=== PATIENT | male | born 1990 | race Caucasian/White ===

== ENCOUNTER 2019-01-05 17:44 | Emergency (ER) | payer OTHER, MEDICAID ==
[~2019-01-05] VITALS: Ht 165.1 cm; Wt 104.5 kg
[2019-01-05] MEDS ORDERED: LIDOcaine 1% w/EPI 1:200,000 injection 10mL vial IM ONE (21:15)
[2019-01-05] MEDS ORDERED: LIDOcaine 1% W/epiNEPHrine 1:100,000 20ml vial SQ ONE (21:25)
[2019-01-05] MEDS ORDERED: ORPH100T2 PO (21:53)
[2019-01-05] MEDS ORDERED: HYDR-4353 PO (21:53)
[2019-01-05] MEDS ORDERED: IBUP-1986 PO (21:53)
[2019-01-05 22:07] VITALS: BP 122/67
== END 2019-01-05 22:09 | disposition home or self-care (01) ==
LOC: ER 17:44
DX: S91.312A Laceration without foreign body, left foot, initial encounter (principal); S13.4XXA Sprain of ligaments of cervical spine, initial encounter; F17.200 Nicotine dependence, unspecified, uncomplicated; V49.88XA Car occupant (driver) (passenger) injured in other specified transport accidents, initial encounter; Y93.89 Activity, other specified; Y92.413 State road as the place of occurrence of the external cause; Y99.9 Unspecified external cause status
CPT/HCPCS: 12001; 99283

== ENCOUNTER 2019-01-16 08:26 | Emergency (ER) | payer MEDICAID, OTHER ==
[~2019-01-16] VITALS: Ht 165.1 cm; Wt 101.5 kg
[~2019-01-16 08:26] MED LIST: HYDR-4353 PO; IBUP-1986 PO; ORPH100T2 PO
[2019-01-16 08:28] VITALS: BP 139/90
--- NOTE | 2019-01-16 08:35 | NUR ---
came in to have stiches remoived from L foot wound is wall approxamated no reddness or swelling denies pain
== END 2019-01-16 09:01 | disposition home or self-care (01) ==
LOC: ER 08:27
DX: S91.312D Laceration without foreign body, left foot, subsequent encounter (principal); Z79.899 Other long term (current) drug therapy; Z79.1 Long term (current) use of non-steroidal anti-inflammatories (NSAID); V43.62XD Car passenger injured in collision with other type car in traffic accident, subsequent encounter
CPT/HCPCS: 99282

== ENCOUNTER 2021-02-25 09:46 | Emergency (ER) | payer MEDICAID, OTHER ==
[~2021-02-25] VITALS: Ht 165.1 cm; Wt 109.1 kg
[~2021-02-25 09:46] MED LIST changes: -HYDR-4353 PO
[2021-02-25 10:52] VITALS: BP 135/91
== END 2021-02-25 10:54 | disposition home or self-care (01) ==
LOC: ER 09:46
DX: R10.84 Generalized abdominal pain (principal)
CPT/HCPCS: 99281